=== PATIENT | female | born 1955 | race African-American/Black ===

== ENCOUNTER 2019-01-18 17:49 | Emergency (ER) | payer OTHER ==
[~2019-01-18] VITALS: Ht 160 cm; Wt 69.4 kg
[2019-01-18 17:53] VITALS: Ht 160 cm; Wt 69.4 kg
[2019-01-18 18:57] VITALS: BP 158/94
== END 2019-01-18 18:57 | disposition home or self-care (01) ==
LOC: ED 17:49
DX: S63.501A Unspecified sprain of right wrist, initial encounter (principal); S20.219A Contusion of unspecified front wall of thorax, initial encounter; I10 Essential (primary) hypertension; K21.9 Gastro-esophageal reflux disease without esophagitis; Z90.710 Acquired absence of both cervix and uterus; Z98.51 Tubal ligation status; Z98.890 Other specified postprocedural states; W18.39XA Other fall on same level, initial encounter; Y93.89 Activity, other specified; Y92.89 Other specified places as the place of occurrence of the external cause; Y99.8 Other external cause status
CPT/HCPCS: Q0092